=== PATIENT | female | born 1985 | race Caucasian/White ===

== ENCOUNTER 2016-07-05 19:36 | Emergency (ER) | payer OTHER ==
[2016-07-05 19:57] VITALS: BP 130/78; PULSE 88; RESP 16; TEMP 98.2; O2SAT 95
--- NOTE | 2016-07-05 20:12 | EDPHY ---
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 - Social History Smoking Status: Never smoked HPI/ROS: CHIEF COMPLAINT: Left ankle pain HISTORY OF PRESENT ILLNESS: [place] in this evening when she slipped, falling about 4-5 feet. She landed with her left leg straight with an inversion injury on the left ankle. Now complains of lateral pain. Pain radiates across the ankle but there is no medial malleolar tenderness. No pain of the midfoot heel. No proximal fibular pain or knee pain. Moderate pain. Worse with palpation or ambulation. Improved at rest. No numbness or tingling. No cyanosis or pallor. No other area of injury. No other associated complaints or modifying factors. PRIOR ORTHO INJURIES: ESTABLISHED ORTHOPEDIST: REVIEW OF SYSTEMS: Ten systems reviewed and are negative unless otherwise noted in the HPI EXAMINATION General Appearance: Alert, no distress Head: normocephalic, atraumatic Eyes: Pupils equal and round, no conjunctival pallor or injection Neck: Normal inspection . No bony tenderness Respiratory: No dyspnea or retractions. No distress Cardiovascular: Pulses normal throughout with symmetric DP and PT pulses at 2+ . Brisk cap refill Gastrointestinal: No distention Neurological: A&O, sensory symmetric, strength symmetric Skin: Warm and dry, no rash. No abrasions or lacerations Extremities: LLE: tenderness to palpation of the left ankle over the lateral malleolus. There is no crepitus or deformity. No tenderness of the medial malleolus. No tenderness of the midfoot or of the calcaneus. Ankle mortise is stable. no pedal edema . Range of motion on the right lower extremity is within normal limits. No bony tenderness of the left proximal fibula or knee. NVI distal to injury DIFFERENTIAL DIAGNOSES: Including but not limited to Sprain, fracture, contusion, strain MDM: 8:10 p.m. fall from 5 feet height with inversion injury to the left ankle. However examination consistent with sprain and possible distal fibular fracture. She is neurovascularly intact distal to the area of pain. No pain in the montero or proximal fibula. No injury elsewhere. X-ray is pending at this time. 8:25 p.m. x-ray of the left ankle is negative as read by me. Radiology interpretation pending. She is neurovascularly intact. Examination is consistent with sprain. Will treat as such. Weightbearing as tolerated in assisted device. Follow up with Orthopedics for definitive care. Return to ER precautions discussed. ED Precautions: Worsening pain. Erythema, edema, cyanosis, pallor, paresthesia or anesthesia. SUPERVISION: This patient was independently evaluated without the aide of supervising physician. (Bart Hicks) Constitutional: Initial Vital Signs Temperature (C) 36.8 C 07/05/16 19:52 Heart Rate 88 07/05/16 19:52 Respiratory Rate 16 07/05/16 19:52 Blood Pressure 130/78 H 07/05/16 19:52 O2 Sat (%) 95 07/05/16 19:52 O2 Delivery Mode Room Air Allergies/Adverse Reactions: No Known Allergies Allergy (Unverified 07/05/16 19:51) Home Medications: Medication Instructions Recorded NK [No Known Home Meds] 07/05/16 Medical Decision Making Other Provider: The patient was evaluated and managed by the physician mail handler assistant. I have reviewed this chart and I agree with the findings and plan of care as documented , as indicated by my signature. I am the secondary supervising physician. ( Karin Murphy) - Data Points Medications Given: Discontinued Medications Ibuprofen (Motrin) 600 mg PO EDNOW ONE Stop: 07/05/16 20:31 Last Admin: 07/05/16 20:35 Dose: 600 mg Departure - Departure Disposition: Home, Routine, Self-Care Clinical Impression: Sprain of ankle, left, Ankle pain Condition: Good Instructions: Ankle Sprain (ED) Additional Instructions: Follow-up with Orthopedics as discussed. Return to the ER for worsening pain, numbness, tingling, cyanosis or pallor Referrals: PURVI RONDON NP [Primary Care Provider] - As per Instructions Gennaro Sarmiento MD [Medical Doctor] - As per Instructions
[2016-07-05] MEDS ORDERED: IBUPROFEN 600 MG TAB PO ONE (20:30)
--- NOTE | 2016-07-05 20:30 | DX ---
Left Ankle Series, 3 Views History: Pain following trauma. Findings: A fracture is not identified. The bone alignment is normal. The ankle mortise has a normal contour. Mild soft tissue swelling is seen. No radiopaque foreign body is identified. Impression: Negative for fracture.
== END 2016-07-05 20:45 | disposition home or self-care (01) ==
DX: S93.402A Sprain of unspecified ligament of left ankle, initial encounter (principal); W17.89XA Other fall from one level to another, initial encounter; Y93.39 Activity, other involving climbing, rappelling and jumping off

== ENCOUNTER 2018-08-10 06:40 | Emergency (ER) | payer OTHER | END 2018-08-10 09:45 | disposition home or self-care (01) ==